=== PATIENT | female | born 1980 | race Caucasian/White ===

== ENCOUNTER 2019-06-18 08:14 | Emergency (ER) | payer OTHER ==
[2019-06-18 08:50] LABS: RAPID GROUP A STREP NEGATIVE (NEGATIVE)
== END 2019-06-18 09:42 | disposition home or self-care (01) ==
LOC: EDH 08:14
DX: J06.9 Acute upper respiratory infection, unspecified (principal); G89.29 Other chronic pain; M54.9 Dorsalgia, unspecified; Z90.49 Acquired absence of other specified parts of digestive tract; Z98.890 Other specified postprocedural states; Z72.0 Tobacco use; Z88.8 Allergy status to other drugs, medicaments and biological substances
CPT/HCPCS: 71046; 87804; 87880

== ENCOUNTER 2019-07-15 06:30 | Emergency (ER) | payer SELFPAY ==
[2019-07-15] MEDS ORDERED: HYDROCODONE/ACETAMINOPHEN 10/325 MG TAB ONE (06:56)
== END 2019-07-15 07:23 | disposition home or self-care (01) ==
LOC: EDH 06:30
DX: K02.9 Dental caries, unspecified (principal); G89.29 Other chronic pain; M54.9 Dorsalgia, unspecified; Z90.49 Acquired absence of other specified parts of digestive tract; Z88.8 Allergy status to other drugs, medicaments and biological substances; Z72.0 Tobacco use